=== PATIENT | male | born 1985 | race African-American/Black ===

== ENCOUNTER 2019-10-03 11:41 | Emergency (ER) | payer MEDICAID ==
[~2019-10-03] VITALS: Ht 182.9 cm; Wt 90.0 kg
[2019-10-03 12:10] LABS: EOSINOPHILS % 0.8 % (0.0-5.0); HEMATOCRIT. 38.1 % (42.0-52.0); HEMOGLOBIN. 12.7 g/dL (14.0-18.0); LYMPHOCYTES % 21.7 % (20.0-50.0); MEAN CORPUSCULAR HEMOGLOBIN 29.3 pg (28.0-32.0); MEAN CORPUSCULAR VOLUME 87.7 fL (80.0-94.0); MEAN PLATELET VOLUME 7.5 fl (7.4-10.4); MONOCYTES % 12.1 % (2.0-8.0); NEUTROPHILS % 64.4 % (40.0-76.0); PLATELET 249 x1000/uL (130-400); RED BLOOD CELL COUNT 4.35 mill/uL (4.7-6.1); RED CELL DISTRIBUTION WIDTH 14.1 % (11.6-14.6)
[2019-10-03 12:18] LABS: CHLORIDE 110 mEq/L (98-107)
[2019-10-03 12:22] LABS: ETHANOL BLOOD 29 mg/dL
[2019-10-03] MEDS ORDERED: BACITRACIN ZINC OINT UDPKT TOP ONE (13:00)
[2019-10-03] MEDS ORDERED: LORAZEPAM 2MG/ML CPJ IM STA ×2 (14:12→15:28)
[2019-10-03] MEDS ORDERED: OLANZAPINE 10 MG/VIAL IM ONE (14:15)
[2019-10-03 16:04] LABS: CLARITY URINE CLEAR (CLEAR); COLOR URINE YELLOW (YELLOW); KETONES URINE TRACE (NEGATIVE); LEUKOCYTE ESTERASE URINE NEGATIVE (NEGATIVE); NITRITE URINE NEGATIVE (NEGATIVE); OCCULT BLOOD URINE TRACE (NEGATIVE); PROTEIN URINE TRACE (NEGATIVE); SPECIFIC GRAVITY URINE 1.026 (1.005-1.030)
[2019-10-03 16:18] LABS: CANNABINOID URINE SCREEN PRESUMTIVE POSITIVE (NEGATIVE); PHENCYCLIDINE URINE SCREEN NEGATIVE (NEGATIVE)
[2019-10-03 16:19] LABS: *BARBITURATES SCREEN URINE NEGATIVE (NEGATIVE); OPIATES URINE SCREEN NEGATIVE (NEGATIVE)
[2019-10-03 16:25] LABS: *COCAINE SCREEN URINE NEGATIVE (NEGATIVE); METHADONE URINE SCREEN NEGATIVE (NEGATIVE)
[2019-10-03 16:26] LABS: *BENZODIAZEPINES SCREEN URINE NEGATIVE (NEGATIVE)
[2019-10-03 16:28] LABS: *AMPHETAMINES SCREEN URINE PRESUMTIVE POSITIVE (NEGATIVE)
[2019-10-03] MEDS ORDERED: ARIPIPRAZOLE 5MG TABLET PO ONE (19:00)
[2019-10-03] MEDS ORDERED: QUETIAPINE FUMARATE 25MG TABLET PO SCH (19:00)
[2019-10-04] MEDS ORDERED: LORAZEPAM 2MG/ML CPJ IM ONE (14:15)
[2019-10-05 08:41] VITALS: BP 160/90
== END 2019-10-05 12:00 | disposition home or self-care (01) ==
LOC: ER 11:41
DX: R45.851 Suicidal ideations (principal); F20.9 Schizophrenia, unspecified; Z91.14 Patient's other noncompliance with medication regimen; R45.1 Restlessness and agitation; Z91.5 Personal history of self-harm; F15.10 Other stimulant abuse, uncomplicated; Z78.1 Physical restraint status
CPT/HCPCS: 36415; 80053; 80165; 80305; 80307; 80320; 80329; 81003; 85025; 96372; 99285; J2060; J3490; G0480

== ENCOUNTER 2022-01-26 18:45 | Emergency (ER) | payer MEDICAID, OTHER ==
[~2022-01-26] VITALS: Ht 188 cm; Wt 84.0 kg
[2022-01-26 18:47] VITALS: BP 118/63
[2022-01-26] MEDS ORDERED: BACITRACIN ZINC OINT UDPKT TOP ONE (19:30)
== END 2022-01-26 21:28 | disposition home or self-care (01) ==
LOC: ER 18:45
DX: S81.812A Laceration without foreign body, left lower leg, initial encounter (principal); W26.8XXA Contact with other sharp object(s), not elsewhere classified, initial encounter; Y93.89 Activity, other specified; Y92.89 Other specified places as the place of occurrence of the external cause; Y99.8 Other external cause status; F41.9 Anxiety disorder, unspecified; F32.9 Major depressive disorder, single episode, unspecified; F20.9 Schizophrenia, unspecified; F15.10 Other stimulant abuse, uncomplicated
CPT/HCPCS: 12002; 73590; 99283; Z7610